=== PATIENT | male | born 1995 | race Caucasian/White ===

== ENCOUNTER 2018-05-09 08:33 | Emergency (ER) | payer OTHER, SELFPAY ==
[2018-05-09 08:35] VITALS: BP 121/70; PULSE 61; RESP 18; TEMP 36.3; O2SAT 100; BMI 22.5
[2018-05-09 08:41] VITALS: BP 126/86; PULSE 65; RESP 14; O2SAT 100
--- NOTE | 2018-05-09 08:52 | RAD_ITS ---
STUDY: X-RAY CHEST REASON FOR EXAM: Male, 23 years old. Chest pain TECHNIQUE: Single AP portable view of the chest. COMPARISON: CTA 09/03/2016 FINDINGS: Cardiac monitoring leads overlie the chest. The lungs are clear and expanded. There is no demonstrated pleural abnormality. Normal size heart. Normal mediastinum and chelsie. Normal visualized pulmonary arteries. Normal visualized aortic arch and descending thoracic aorta. Normal visualized thoracic spine. Normal visualized ribs, clavicles, and shoulders. There is no demonstrated abnormality of the visualized soft tissue structures of the upper abdomen. RAD/Chest 1 View (Portable) IMPRESSION: Normal x-ray examination of the chest. Electronically Signed: Ke Naylor DO at 9:32 EDT Tel , Service support ,
[2018-05-09 09:12] LABS: Absolute Lymphocyte Count 2.14 X10^3/ul (0.83-4.51); Absolute Neutrophil Count 3.1 X10^3/uL (2.0-7.7); Basophil# 0.02 X10^3/uL; Basophil% 0.3 % (0-1); Eosinophil# 0.17 X10^3/uL; Eosinophils% 2.9 % (0-5); Hematocrit 41.8 % (40-54); Hemoglobin 13.8 g/dl (13.0-16.5); Lymphocyte # 2.14 X10^3/ul (4.0); Lymphocyte % 36.5 % (19-41); Mean Corpuscular Hgb 28.6 pg (27.0-32.0); Mean Corpuscular Volume 86.5 fL (80-94); Mean Platelet Vol. 9.1 fl (6.2-12.0); Monocyte# 0.46 X10^3/uL; Monocyte% 7.8 % (0-10); Neutrophil # 3.07 X10^3/uL (2.7-7.7); Neutrophil % 52.5 % (47-70); Platelet Count 202 K/mm3 (150-450); RBC Distribution Width CV 12.4 % (11.6-14.6); RBC Distribution Width SD 39.5 fl (35.1-43.9); Red Blood Count 4.83 M/mm3 (4.6-6.2); White Blood Count 5.9 K/mm3 (4.4-11.0)
[2018-05-09 09:13] LABS: POSITIVE COUNT NO; POSITIVE DIFFERENTIAL NO; POSITIVE MORPHOLOGY NO
[2018-05-09 09:14] LABS: Prothrombin Time (Protime)PT. 13.5 SECONDS (11.7-14.9)
[2018-05-09 09:23] LABS: ALB/GLOB Ratio 1.3 RATIO (0.9-2.4); AST(SGOT) 15 U/L (15-37); Alanine Aminotransfer ALT/SGPT 29 U/L (16-61); Albumin, Serum 4.2 g/dL (3.2-5.0); Alkaline Phosphatase 69 U/L (45-117); Anion Gap 5 (5-15); BUN 19 mg/dL (7-18); BUN/Creat Ratio 22.9 RATIO (10-20); Calcium,Total 8.4 mg/dL (8.5-10.1); Chloride 104 mmol/L (98-107); Creatinine, Serum 0.83 mg/dL (0.70-1.30); EST Glomerular Filtration Rate 121 mL/min (>60); Est Glom Filt Rate - Afr Amer 146 mL/min (>60); Estimated Creatinine Clearance 130.31 ml/min; Globulin 3.2 g/dL (2.2-4.2); Glucose 94 mg/dL (74-106); Potassium 4.2 mmol/L (3.5-5.1); Protein, Total 7.4 g/dL (6.4-8.2); Sodium Level 138 mmol/L (136-145)
[2018-05-09 09:58] VITALS: O2SAT 100
--- NOTE | 2018-05-09 10:14 | ED.VISSUMM ---
- ER Visit Summary Date of Service: 05/09/18 Chief Complaint: Pain History of Present Illness: The patient is a 23 M with left-sided chest pain. It feels like a tightness and also pins and needles. Worse with breathing. This all started today. Nothing seemed to bring it on. Nothing has made it better. No history of this. No history of heart disease, lung disease, PE, or aortic disease. No recent fevers or illness. Physical Examination: Afebrile and vital signs unremarkable. Heart regular rate and rhythm. Lungs clear. Abdomen soft. Skin normal. Calves soft and supple. Pulses strong and equal. Test Results: EKG showed sinus rhythm at a rate of 61. Chest x-ray was normal. Laboratory studies including troponin were normal. Emergency Department Course and Treatment: Patient is low risk for heart disease, aortic disease, PE. His workup was unremarkable. Patient will be discharged. Monitor for new or worsening symptoms. Tylenol or [id number] remedies for pain as needed. Follow-up with primary care. Treatment Plan: As above Disposition: Discharged Impression: 1. Chest pain This note was generated with [employer] dictation software. It may contain incorrect words, spelling, and punctuation that were not noted in review of the chart prior to signing ED Disposition - Plan for ED Patient: Chief Complaint: Chest Pain Referrals: Yvan Danielle III, MD [Primary Care Provider] -
--- NOTE | 2018-05-09 10:16 | ED.DEP ---
ED Disposition - Plan for ED Patient: Chief Complaint: Chest Pain Instructions: ED Chest Pain NonCardiac Referrals: Yvan Danielle III, MD [Primary Care Provider] -
[2018-05-09 11:13] VITALS: BP 117/68; PULSE 74; RESP 18; O2SAT 99
== END 2018-05-09 11:15 | disposition home or self-care (01) ==
LOC: ED 09:29
PROVIDERS: Emergency Provider Emergency Medicine; Family Provider Family Medicine; PCP Family Medicine
DX: R07.9 Chest pain, unspecified (principal); Z87.891 Personal history of nicotine dependence
CPT/HCPCS: 71045; 80053; 84484; 85025; 85610; 93005; 99284; A4216

== ENCOUNTER 2023-07-17 18:02 | Emergency (ER) | payer BC, SELFPAY ==
[2023-07-17 18:04] VITALS: BP 149/123; PULSE 103; RESP 18; TEMP 36.1; O2SAT 100; BMI 23.3
--- NOTE | 2023-07-17 18:14 | EKG12_ITS ---
Test Reason : CP Blood Pressure : / mmHG Vent. Rate : 084 BPM Atrial Rate : 084 BPM P-R Int : 144 ms QRS Dur : 090 ms QT Int : 366 ms P-R-T Axes : 081 085 070 degrees QTc Int : 432 ms Normal sinus rhythm Normal ECG Confirmed by ANGELA SCHMITT, WING ([id number]), editor magazine JUAN LUIS ACEVES ([id number]) on 07/19/2023 2:29:35 PM Referred By: Valdo Bartholomew Confirmed By:WING MILLER MD
[2023-07-17 18:25] VITALS: BP 124/90; PULSE 89; RESP 16
[2023-07-17] MEDS: 0.9% Normal Saline (1000mL) 1,000 ML 1000 ML IV (18:28)
[2023-07-17 18:38] LABS: Absolute Lymphocyte Count 2.24 X10^3/uL (0.83-4.51); Absolute Neutrophil Count 3.1 X10^3/uL (2.0-7.7); Basophil# 0.06 X10^3/uL; Eosinophil# 0.28 X10^3/uL; Eosinophils% 4.5 % (0-5); Hematocrit 43.8 % (40-54); Hemoglobin 14.2 g/dL (13.0-16.5); Lymphocyte # 2.24 X10^3/ul (0.83-4.51); Lymphocyte % 36.2 % (19-41); Mean Corp Hgb Conc 32.4 g/dL (32-36); Mean Corpuscular Hgb 28.2 pg (27.0-32.0); Mean Corpuscular Volume 86.9 fL (80-94); Mean Platelet Vol. 8.7 fl (6.2-12.0); Monocyte# 0.51 X10^3/uL; Monocyte% 8.2 % (0-10); NRBC Flagged by Analyzer 0 % (0-5); Neutrophil # 3.09 X10^3/uL (2.7-7.7); Neutrophil % 49.9 % (47-70); Platelet Count 259 K/mm3 (150-450); RBC Distribution Width SD 38.2 fl (35.1-43.9); Red Blood Count 5.04 M/mm3 (4.6-6.2); White Blood Count 6.2 K/mm3 (4.4-11.0)
--- NOTE | 2023-07-17 18:40 | RAD_ITS ---
STUDY: X-RAY CHEST REASON FOR EXAM: Male, 28 years old. chest pain TECHNIQUE: Single AP portable view of the chest. COMPARISON: 05/09/2008. FINDINGS: The lungs are clear and expanded. There is no demonstrated pleural abnormality. Normal size heart. Normal mediastinum and chelsie. Normal visualized pulmonary arteries. Normal visualized aortic arch and descending thoracic aorta. Normal visualized thoracic spine. Normal visualized ribs, clavicles, and shoulders. There is no demonstrated abnormality of the visualized soft tissue structures of the upper abdomen. RAD/Chest 1 View (Portable) IMPRESSION: Normal x-ray examination of the chest. Electronically Signed: Aranza Cortes MD at 19:13 EDT ,
[2023-07-17 18:45] LABS: D-Dimer Quantitative (DVT/PE) < 0.27 FEU/ug/m (0.27-0.49)
[2023-07-17 18:50] LABS: Anion Gap 6 (5-15); BUN 13 mg/dL (7-18); BUN/Creat Ratio 12.7 RATIO (10-20); Chloride 104 mmol/L (98-107); Creatinine, Serum 1.02 mg/dL (0.70-1.30); EST Glomerular Filtration Rate 92 mL/min (>60); Est Glom Filt Rate - Afr Amer 111 mL/min (>60); Estimated Creatinine Clearance 103.38 ml/min; Glucose 99 mg/dL (74-106); Potassium 3.9 mmol/L (3.5-5.1); Sodium Level 139 mmol/L (136-145); Troponin-I HS 6 pg/mL (3.0-78.0)
[2023-07-17 19:29] VITALS: BP 122/78; PULSE 86; RESP 20; O2SAT 98
--- NOTE | 2023-07-17 19:30 | CM.ED ---
Social Work Note Referral Source: case find Referral Reason: no PCP SW met with patient and introduced herself and role as [facility] Geochemistry Teacher. Patient lying on hospital bed and agreeable to speak with SW with family present. SW inquired about patient's insurance and current PCP. Patient verified insurance and reports no current PCP. SW provided patient with a list of local PCPs in network with patient's insurance and accepting new patients. Patient was receptive towards list and voiced no other needs. SW remains available if needs arise. Brie Lara METER MAKER, LAN
[2023-07-17 20:02] VITALS: BP 120/85; PULSE 91; O2SAT 95
--- NOTE | 2023-07-17 20:06 | EDS_ITS ---
HPI History of Present Illness Chief Complaint: General Illness Narrative Narrative: 28-year-old male presenting with concern for heart attack. He states he had a sharp pain in the right side of his neck which radiated into the right medial bicep and is resolved at this point. He had no lightheadedness, dizziness. He states that he did feel short of breath and he states he does have a long history of undiagnosed anxiety. He states he is pretty sure he does have anxiety. He has no cardiac history. No pulmonary history. He is a previous smoker but does not smoke currently. No other medical problems. He just received insurance back so he has not had any recent blood work or evaluation by a primary care physician. No fevers, chills, cough. He states that he gets some pain sometimes in the left upper ribs in the middle of his chest when he raises his shoulders and sings in his chest, but other than that it does not hurt unless he reproduces it in this manner. PFSH PFSH Home Medications hydroxyzine pamoate 25 mg capsule (Vistaril) 25 mg PO TID PRN anxiety #20 caps 07/17/23 [Rx Last Taken Unknown] Allergy/AdvReac Type Severity Reaction Status Date / Time No Known Allergies Allergy Verified 07/17/23 18:04 Social History Smoking Status: Former smoker ROS ROS ED Constitutional Constitutional ED: Denies chills, fever(s) or sweats Eyes Eyes: Denies blurry vision or change in vision ENT ENT ED: Denies ear pain or sore throat Cardiovascular Cardiovascular: Reports chest pain; Denies palpitations or racing heartbeat Respiratory/Chest Respiratory/Chest: Reports dyspnea; Denies cough or sputum Gastrointestinal Gastrointestinal: Denies abdominal pain, constipation, diarrhea or vomiting Genitourinary Genitourinary ED: Denies dysuria, hematuria or urinary frequency Musculoskeletal Musculoskeletal: Denies arthralgias, myalgias or neck pain Integumentary Denies abscess, Abrasions or rash Neurologic Neurologic: Denies headache(s), paresthesias or weakness Psychiatric Psychiatric: Reports anxiety; Denies depression, suicidal ideation or suicidal thoughts Endocrine Endocrinology: Denies polydipsia or polyuria EXAM Physical Exam Const Vital Signs: 07/17/23 18:04 07/17/23 18:25 07/17/23 18:25 Temperature 96.9 F L Temperature Source Temporal Pulse Rate 103 H 89 Respiratory Rate 18 16 Respiratory Effort Respiratory Pattern Blood Pressure 149/123 H 124/90 H Blood Pressure Mean 131 101 Pulse Ox 100 Oxygen Delivery Method Room Air Room Air Room Air 07/17/23 18:25 07/17/23 19:29 07/17/23 20:02 Temperature Temperature Source Pulse Rate 86 91 Respiratory Rate 20 H Respiratory Effort Short of Breath Respiratory Pattern Normal Blood Pressure 122/78 H 120/85 H Blood Pressure Mean 92 96 Pulse Ox 98 95 Oxygen Delivery Method Room Air Positive well nourished General Appearance ED: cyanotic HEENT Reports moist mucous membranes and dry mucous membranes Mouth ED: Yes dry mucous membranes Mouth: dry mucous membranes Eyes PERRL and EOMs intact bilaterally Neck no lymphadenopathy and supple General: Negative for tenderness Chest Wall inspection of chest normal Resp normal respiratory effort and clear to auscultation bilaterally Auscultation: Negative for rales, rhonchi or wheezes Cardio regular rate and regular rhythm Back/Spine Back/Spine Narrative: No tenderness to palpation of the cervical spine or paraspinal musculature tenderness bilaterally. There is no reproducible pain by range of motion in the right shoulder either in flexion, extension, rotation, abduction, abduction. Motor strength 5/5 and equal symmetric bilaterally. No skin discolorations. No rashes. No bruising. Extremity normal to inspection Neuro oriented x3 and CN's II-XII intact bilaterally Sensorium / Orientation: alert Motor Exam: strength 5/5 throughout Psych mental status grossly normal Skin no rashes or lesions noted MDM MDM MDM Narrative Medical decision making narrative: 28-year-old male presenting with right-sided neck pain that radiates to the biceps and completely reproducible pain in the left side of his chest when he sings in his chest and raises his shoulders. Differential includes anxiety, ACS, pneumonia, costochondritis, PE, dehydration, electro abnormalities. CBC was obtained to assess white blood cell count, hemoglobin, platelets. BMP to assess renal function electrolytes. High-sensitivity troponin and EKG were obtained to assess for ischemia/dysrhythmia. Chest x-ray to rule out pneumonia or other acute findings. CBC shows normal white blood cell count of 6.2. Hemoglobin stable 14.2. Platelets are normal at 259. Renal function electrolytes within normal limits. High-sensitivity troponin is 6. EKG on my interpretation shows a normal sinus rhythm with a ventricular to 84 bpm without sign of ischemic change or ectopy on my interpretation. Chest x-ray my interpretation shows no acute process. D-dimer was negative. At this point with a negative work-up and no risk factors I did believe the patient is safe for discharge home. I do not believe needs a delta troponin. Return precautions were discussed. Impression: 1. History of anxiety 2. Chest wall pain 3. Right-sided neck pain resolved Lab Data Labs: Laboratory Results - last 24 hr 07/17/23 18:25 WBC 6.2 RBC 5.04 Hgb 14.2 Hct 43.8 MCV 86.9 MCH 28.2 MCHC 32.4 RDW Std Deviation 38.2 RDW Coeff of David 12.0 Plt Count 259 MPV 8.7 Immature Gran % (Auto) 0.200 Neut % (Auto) 49.9 Lymph % (Auto) 36.2 [place] % (Auto) 8.2 Eos % (Auto) 4.5 Baso % (Auto) 1.0 Absolute Neuts (auto) 3.1 Absolute Lymphs (auto) 2.24 Nucleated RBC % 0 D-Dimer Quant (PE/DVT) < 0.27 L Sodium 139 Potassium 3.9 Chloride 104 Carbon Dioxide 29.0 Anion Gap 6 BUN 13 Creatinine 1.02 Estim Creat Clear Calc 103.38 Est GFR (MDRD) Af Amer 111 Est GFR (MDRD) Non-Af 92 BUN/Creatinine Ratio 12.7 Glucose 99 Calcium 9.0 Troponin I High Sens 6 Radiography Diagnostic Testing: Clinical Impression(s) from Imaging Studies Chest X-Ray 07/17/23 18:40 IMPRESSION: Normal x-ray examination of the chest. Electronically Signed: Aranza Cortes MD at 19:13 EDT , Discharge Plan Triage Chief Complaint: General Illness ED Provider: Valdo Bartholomew Dx/Rx/DC Orders Instructions: ED Anxiety Reaction, ED Chest Pain, Noncardiac, ED Chest Wall Pain, Costochondritis Prescriptions: New hydroxyzine pamoate [Vistaril] 25 mg capsule 25 mg PO TID PRN (Reason: anxiety) Qty: 20 0RF Primary Care Provider: Care Physician,No Primary Referrals: Care Physician,No Primary [Primary Care Provider] - Disposition Disposition: Home, Self Care Discharge Date/Time: 07/17/23 20:21
== END 2023-07-17 20:21 | disposition home or self-care (01) ==
PROVIDERS: Emergency Provider Student in an Organized Health Care Education/Training Program; Referring Provider Student in an Organized Health Care Education/Training Program; Visit Provider Student in an Organized Health Care Education/Training Program
DX: F41.9 Anxiety disorder, unspecified (principal); R07.81 Pleurodynia; R06.00 Dyspnea, unspecified; M54.2 Cervicalgia; R07.89 Other chest pain; Z87.891 Personal history of nicotine dependence
CPT/HCPCS: 71045; 80048; 84484; 85025; 85379; 93005; 96360; 99283; J7030; A4216